=== PATIENT | male | born 1960 | race Caucasian/White ===

== ENCOUNTER → 2019-06-26 | Outpatient (CLI) | payer OTHER ==
[~2019-06-26] MED LIST: ASPIRIN81 M2 PO; EFFIENT10 MG PO; FISH OIL 1,2001 EAC4 PO; HECORIA1 MG PO; LISINOPRIL20 MG PO; SIMVASTATIN20 MG PO; SPIRONOLACTONE25 M1 GT; TOPROL XL25 MG PO; ZOCOR40 MG PO
== END ==
LOC: RAD 08:26
DX: T85.691A Other mechanical complication of intraperitoneal dialysis catheter, initial encounter (principal); Y92.89 Other specified places as the place of occurrence of the external cause; Z96.0 Presence of urogenital implants; Z94.0 Kidney transplant status

== ENCOUNTER → 2019-07-21 | Outpatient (CLI) | payer OTHER | LOC: RAD 10:42 | DX: T85.691A Other mechanical complication of intraperitoneal dialysis catheter, initial encounter (principal) ==